=== PATIENT | female | born 1945 | race Caucasian/White ===

== ENCOUNTER 2019-02-20 12:52 | Emergency (ER) | payer OTHER ==
[~2019-02-20] VITALS: Ht 160 cm; Wt 67.0 kg
[2019-02-20 14:08] LABS: BASOPHILS # (AUTO) 0.05 x10^3/uL (0-0.1); BASOPHILS % (AUTO) 1 % (0-1); EOSINOPHILS # (AUTO) 0.04 x10^3/uL (0-0.4); EOSINOPHILS % (AUTO) 1 % (1-7); LYMPHOCYTES # (AUTO) 2.44 x10^3/uL (1-3.4); LYMPHOCYTES % (AUTO) 50 % (22-44); MD NO; MEAN CORPUSCULAR HEMOGLOBIN 33.3 pg (27.0-34.8); MEAN CORPUSCULAR HGB CONC 33.5 g/dL (32.4-35.8); MEAN CORPUSCULAR VOLUME 99.3 fL (80-100); MEAN PLATELET VOLUME 6.4 fL (7.4-10.4); MONOCYTES # (AUTO) 0.37 x10^3/uL (0.2-0.8); MONOCYTES % (AUTO) 8 % (2-9); NEUTROPHILS # (AUTO) 1.98 x10^3/uL (1.8-6.8); NEUTROPHILS % (AUTO) 41 % (42-75); PLATELET COUNT 271 x10^3/uL (130-400); RED CELL DISTRIBUTION WIDTH 15.7 % (9.6-15.2)
[2019-02-20 14:12] LABS: ALBUMIN 3.7 g/dL (3.4-5.0); ANION GAP 6 mmol/L (5-15); CALCIUM 8.7 mg/dL (8.5-10.1); CHLORIDE 108 mmol/L (98-107)
[2019-02-20 14:16] LABS: ALANINE AMINOTRANSFERASE 62 U/L (12-78); ALKALINE PHOSPHATASE 95 U/L (45-117); BILIRUBIN,TOTAL 0.5 mg/dL (0.2-1.0); CREATININE 0.78 mg/dL (0.55-1.02); TOTAL PROTEIN 7.4 g/dL (6.4-8.2)
--- NOTE | 2019-02-20 14:16 | NUR ---
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
--- NOTE | 2019-02-20 16:06 | NUR ---
PT RESTING IN BED, DENIES ANY NEEDS OR CONCERNS AT THIS TIME. CALL LIGHT IN REACH.
--- NOTE | 2019-02-20 16:33 | NUR ---
CITY DETECTIVE SAW PT AT BEDSIDE. STATES [facility] WILL ACCEPT HER INSURANCE.
--- NOTE | 2019-02-20 16:47 | NUR ---
BREATHALYZER 0.23
--- NOTE | 2019-02-20 17:57 | NUR ---
REPORT FROM ABDIRAHMAN BOWEN. UA WALKED TO LAB. PT RESTING WITH NO NEEDS AT THIS TIME. CALL LIGHT IN REACH
--- NOTE | 2019-02-20 18:32 | NUR ---
PT GIVEN DIET TRAY. WAITING FOR UA RESULTS. PT HAS NO OTHER NEEDS AT THIS TIIME. CALL LIGHT IN REACH
[2019-02-20 18:41] LABS: AMPHETAMINE SCREEN, URINE Negative (Negative); BARBITURATE SCREEN, URINE Negative (Negative); BENZODIAZEPINE SCREEN, URINE Negative (Negative); CANNABINOID SCREEN, URINE Negative (Negative); COCAINE SCREEN, URINE Negative (Negative); METHADONE SCREEN, URINE Negative (Negative); OPIATE SCREEN, URINE Negative (Negative)
--- NOTE | 2019-02-20 20:10 | NUR ---
sw spoke to pt. paperwork being faxed to [facility] for detox. waiting to hear if pt will be admitted. pt up to bathroom . call light in reach
[2019-02-20 20:25] VITALS: BP 123/53
--- NOTE | 2019-02-20 21:07 | NUR ---
NAOMI LUCAS SPOKE WITH DAILY IN ADMISSIONS AT [facility]. PER DAILY IT IS OKAY TO SEND PT TO [facility] VIA TAXI.
--- NOTE | 2019-02-20 21:13 | NUR ---
PT GIVEN DISCHARGE INSTRUCTIONS AND TAXI VOUCHER TO GO TO [facility].
== END 2019-02-20 21:21 | disposition home or self-care (01) ==
LOC: ED 17:15
DX: F10.220 Alcohol dependence with intoxication, uncomplicated (principal)
CPT/HCPCS: 36415; 80053; 80307; 85025; 99283